=== PATIENT | female | born 1965 | race Asian ===

== ENCOUNTER 2023-06-10 22:43 | Emergency (ER) | payer SELFPAY ==
[~2023-06-10] VITALS: Ht 149.9 cm; Wt 52.3 kg
[2023-06-10 22:50] VITALS: BP 119/72; PULSE 89; RESP 14; TEMP 98.2; O2SAT 100
== END 2023-06-10 23:38 | disposition left against medical advice (07) ==
LOC: ER 22:45
DX: M79.673 Pain in unspecified foot (principal); Z53.21 Procedure and treatment not carried out due to patient leaving prior to being seen by health care provider
CPT/HCPCS: 99281

== ENCOUNTER 2023-06-26 00:32 | Emergency (ER) | payer MEDICAID ==
--- NOTE | 2023-06-26 01:13 | NUR ---
patient in restroom refusing to be seen by varnish finisherearly morning babysitter outside bathroom door speaking with patient at this time asking if they would like to be seen by a provider
== END 2023-06-26 01:37 | disposition left against medical advice (07) ==
LOC: ER 00:34
DX: R10.9 Unspecified abdominal pain (principal); M79.673 Pain in unspecified foot; Z53.21 Procedure and treatment not carried out due to patient leaving prior to being seen by health care provider

== ENCOUNTER 2023-08-30 20:27 | Emergency (ER) | payer MEDICAID ==
[~2023-08-30] VITALS: Ht 157.5 cm; Wt 59.1 kg
[~2023-08-30 20:27] MED LIST: BUPR-231 PO; HYDR50TA65 PO; KERASAL TOP; Miscellaneous TOP; OLAN20TA34 PO; TRAZ150T78 PO
[2023-08-31 09:37] VITALS: BP 146/73; PULSE 90; TEMP 97.7; O2SAT 98
[2023-08-31 16:10] VITALS: RESP 16
== END 2023-08-31 16:12 | disposition left against medical advice (07) ==
LOC: ER 20:28
DX: M79.671 Pain in right foot (principal); Z20.822 Contact with and (suspected) exposure to COVID-19; M79.672 Pain in left foot; R42 Dizziness and giddiness; F19.10 Other psychoactive substance abuse, uncomplicated; Z91.040 Latex allergy status
CPT/HCPCS: 36415; 87811; 99284

== ENCOUNTER 2023-09-01 09:11 | Emergency (ER) | payer MEDICAID ==
[~2023-09-01] VITALS: Ht 154.9 cm; Wt 47.4 kg
[2023-09-01 09:12] VITALS: BP 97/56; PULSE 93; RESP 16; TEMP 97.7; O2SAT 98
--- NOTE | 2023-09-01 10:00 | NUR ---
pt not in lobby registrations states she said she will come back later
== END 2023-09-01 12:24 | disposition left against medical advice (07) ==
LOC: ER 09:12
DX: Z04.6 Encounter for general psychiatric examination, requested by authority (principal); Z53.21 Procedure and treatment not carried out due to patient leaving prior to being seen by health care provider
CPT/HCPCS: 99281

== ENCOUNTER 2023-09-06 10:41 | Emergency (ER) | payer MEDICAID ==
[~2023-09-06] VITALS: Ht 157.5 cm; Wt 47.3 kg
[2023-09-06] MEDS ORDERED: NAPR-56 PO (12:08)
[2023-09-06 12:35] VITALS: BP 90/63; PULSE 94; RESP 16; TEMP 98.2; O2SAT 100
--- NOTE | 2023-09-06 14:43 | NUR ---
I AGREE WITH THE ASSESSMENT OF Adilson KOEHLER LVN.
== END 2023-09-06 12:36 | disposition home or self-care (01) ==
LOC: ER 10:41
DX: M79.671 Pain in right foot (principal); M79.672 Pain in left foot; F32.A Depression, unspecified; Z88.8 Allergy status to other drugs, medicaments and biological substances; Z59.00 Homelessness unspecified
CPT/HCPCS: 99284

== ENCOUNTER 2023-09-11 08:21 | Emergency (ER) | payer MEDICAID ==
[~2023-09-11] VITALS: Ht 157.5 cm; Wt 47.7 kg
[~2023-09-11 08:21] MED LIST changes: +NAPR-56 PO
[2023-09-11] MEDS ORDERED: NAPR-56 PO (09:38)
[2023-09-11 09:44] VITALS: BP 115/78; PULSE 90; RESP 18; TEMP 97.7; O2SAT 99
[2023-09-11] MEDS ORDERED: OLAN20TA34 PO (11:23)
== END 2023-09-11 09:46 | disposition home or self-care (01) ==
LOC: ER 08:21
DX: M54.59 Other low back pain (principal); F32.A Depression, unspecified; Z91.040 Latex allergy status; Z88.8 Allergy status to other drugs, medicaments and biological substances
CPT/HCPCS: 99282

== ENCOUNTER 2023-09-11 09:52 | Emergency (ER) | payer MEDICAID ==
[~2023-09-11] VITALS: Ht 157.5 cm; Wt 47.7 kg
[2023-09-11 10:01] VITALS: BP 118/80; PULSE 80; TEMP 98.6; O2SAT 100
[2023-09-11] MEDS ORDERED: OLAN20TA34 PO (11:23)
[2023-09-11 11:41] VITALS: RESP 16
== END 2023-09-11 12:00 | disposition home or self-care (01) ==
LOC: ER 09:52
DX: F41.9 Anxiety disorder, unspecified (principal); F29 Unspecified psychosis not due to a substance or known physiological condition; F32.A Depression, unspecified; Z91.040 Latex allergy status; Z88.8 Allergy status to other drugs, medicaments and biological substances
CPT/HCPCS: 99283

== ENCOUNTER 2023-09-18 09:57 | Emergency (ER) | payer MEDICAID ==
[~2023-09-18] VITALS: Ht 157.5 cm; Wt 47.5 kg
[2023-09-18 11:20] VITALS: BP 127/55; PULSE 77; RESP 14; TEMP 98.2; O2SAT 98
== END 2023-09-18 11:22 | disposition home or self-care (01) ==
LOC: ER 09:57
DX: M79.671 Pain in right foot (principal); M79.672 Pain in left foot; F32.A Depression, unspecified; Z91.040 Latex allergy status; Z88.8 Allergy status to other drugs, medicaments and biological substances
CPT/HCPCS: 99283

== ENCOUNTER 2023-09-24 23:42 | Emergency (ER) | payer MEDICAID ==
[~2023-09-24] VITALS: Ht 157.5 cm; Wt 47.7 kg
[2023-09-24 23:44] VITALS: BP 160/97; PULSE 88; RESP 16; TEMP 97.9; O2SAT 100
== END 2023-09-25 04:02 | disposition left against medical advice (07) ==
LOC: ER 23:43
DX: K08.89 Other specified disorders of teeth and supporting structures (principal); Z53.21 Procedure and treatment not carried out due to patient leaving prior to being seen by health care provider
CPT/HCPCS: 99281

== ENCOUNTER 2023-09-26 00:02 | Emergency (ER) | payer MEDICAID ==
[~2023-09-26] VITALS: Ht 157.5 cm; Wt 47.7 kg
[2023-09-26 00:08] VITALS: BP 130/86; PULSE 87; RESP 15; TEMP 98; O2SAT 100
[2023-09-26] MEDS ORDERED: acetaminophen 325mg tablet PO ONE (01:10)
== END 2023-09-26 01:19 | disposition home or self-care (01) ==
LOC: ER 00:03
DX: M79.671 Pain in right foot (principal); M79.672 Pain in left foot
CPT/HCPCS: 99283; L3265

== ENCOUNTER 2023-10-02 06:40 | Emergency (ER) | payer MEDICAID ==
[~2023-10-02] VITALS: Ht 157.5 cm; Wt 47.7 kg
[2023-10-02 06:41] VITALS: BP 172/76; PULSE 77; TEMP 98; O2SAT 100
[2023-10-02 08:06] VITALS: RESP 16
== END 2023-10-02 09:00 | disposition left against medical advice (07) ==
LOC: ER 06:41
DX: R10.9 Unspecified abdominal pain (principal); R53.83 Other fatigue; Z53.21 Procedure and treatment not carried out due to patient leaving prior to being seen by health care provider
CPT/HCPCS: 99281

== ENCOUNTER 2023-10-03 08:01 | Emergency (ER) | payer MEDICAID ==
[~2023-10-03] VITALS: Ht 157.5 cm; Wt 47.3 kg
[2023-10-03 08:03] VITALS: BP 115/64; PULSE 89; RESP 16; TEMP 98; O2SAT 100
== END 2023-10-03 09:13 | disposition left against medical advice (07) ==
LOC: ER 08:02
DX: M79.673 Pain in unspecified foot (principal); Z53.21 Procedure and treatment not carried out due to patient leaving prior to being seen by health care provider; Z88.8 Allergy status to other drugs, medicaments and biological substances; Z79.899 Other long term (current) drug therapy; Z59.00 Homelessness unspecified
CPT/HCPCS: 99281

== ENCOUNTER 2023-10-07 06:34 | Emergency (ER) | payer MEDICAID ==
[~2023-10-07] VITALS: Ht 157.5 cm; Wt 47.5 kg
[2023-10-07 06:38] VITALS: BP 134/91; PULSE 97; TEMP 97.1; O2SAT 98
[2023-10-07 06:53] VITALS: RESP 16
== END 2023-10-07 07:36 | disposition left against medical advice (07) ==
LOC: ER 06:35
DX: R11.2 Nausea with vomiting, unspecified (principal); R10.10 Upper abdominal pain, unspecified; Z53.29 Procedure and treatment not carried out because of patient's decision for other reasons; Z78.0 Asymptomatic menopausal state; Z88.8 Allergy status to other drugs, medicaments and biological substances; Z91.011 Allergy to milk products; Z79.899 Other long term (current) drug therapy; Z59.00 Homelessness unspecified
CPT/HCPCS: 99281; 99283

== ENCOUNTER 2023-10-08 03:56 | Emergency (ER) | payer MEDICAID ==
[~2023-10-08] VITALS: Ht 157.5 cm; Wt 46.1 kg
[2023-10-08 03:59] VITALS: BP 132/83; PULSE 66; RESP 16; TEMP 98.2; O2SAT 100
[2023-10-08] MEDS ORDERED: ibuprofen tablet 400 MG TABLET PO ONE (04:35)
[2023-10-08] MEDS ORDERED: ondansetron 4mg rapidly disintigrating tab PO ONE (04:35)
== END 2023-10-08 06:04 | disposition home or self-care (01) ==
LOC: ER 03:57
DX: R11.2 Nausea with vomiting, unspecified (principal); R10.9 Unspecified abdominal pain; Z59.00 Homelessness unspecified; Z91.011 Allergy to milk products; Z88.8 Allergy status to other drugs, medicaments and biological substances; Z79.899 Other long term (current) drug therapy
CPT/HCPCS: 99283

== ENCOUNTER 2023-10-10 16:25 | Emergency (ER) | payer MEDICAID ==
[~2023-10-10] VITALS: Ht 157.5 cm; Wt 45.5 kg
[2023-10-10 16:35] VITALS: BP 157/87; PULSE 100; RESP 16; TEMP 98.6; O2SAT 98
[2023-10-10] MEDS ORDERED: NAPR-56 PO (17:14)
[2023-10-10] MEDS ORDERED: TRAZ150T78 PO (17:14)
[2023-10-10] MEDS ORDERED: BUPR-231 PO (17:14)
[2023-10-10] MEDS ORDERED: OLAN20TA34 PO (17:14)
[2023-10-10] MEDS ORDERED: HYDR50TA65 PO (17:14)
== END 2023-10-10 17:20 | disposition home or self-care (01) ==
LOC: ER 16:26
DX: F41.9 Anxiety disorder, unspecified (principal); F29 Unspecified psychosis not due to a substance or known physiological condition; F32.A Depression, unspecified; Z59.00 Homelessness unspecified; Z79.899 Other long term (current) drug therapy; Z91.011 Allergy to milk products
CPT/HCPCS: 99283

== ENCOUNTER 2023-10-13 04:12 | Emergency (ER) | payer MEDICAID ==
[~2023-10-13] VITALS: Ht 157.5 cm; Wt 54.5 kg
[2023-10-13 04:40] VITALS: BP 175/98; PULSE 106; RESP 17; TEMP 98; O2SAT 99
== END 2023-10-13 08:48 | disposition left against medical advice (07) ==
LOC: ER 04:12
DX: R11.10 Vomiting, unspecified (principal); Z53.21 Procedure and treatment not carried out due to patient leaving prior to being seen by health care provider
CPT/HCPCS: 99281

== ENCOUNTER 2023-10-19 04:03 | Emergency (ER) | payer MEDICAID | END 2023-10-19 05:26 | disposition left against medical advice (07) | LOC: ER 04:04 | DX: M79.673 Pain in unspecified foot (principal); Z53.21 Procedure and treatment not carried out due to patient leaving prior to being seen by health care provider ==

== ENCOUNTER 2023-10-20 16:50 | Emergency (ER) | payer MEDICAID ==
[~2023-10-20] VITALS: Ht 157.5 cm; Wt 47.3 kg
[2023-10-20 17:58] VITALS: TEMP 97.8
[2023-10-20 22:28] VITALS: BP 126/83; PULSE 88; RESP 14; O2SAT 98
== END 2023-10-21 03:13 | disposition left against medical advice (07) ==
LOC: ER 16:51
DX: R44.3 Hallucinations, unspecified (principal); Z53.21 Procedure and treatment not carried out due to patient leaving prior to being seen by health care provider
CPT/HCPCS: 99281

== ENCOUNTER 2023-10-27 13:30 | Emergency (ER) | payer MEDICAID ==
[~2023-10-27] VITALS: Ht 157.5 cm; Wt 47.3 kg
[2023-10-27 14:35] VITALS: TEMP 99.4
[2023-10-27 15:58] VITALS: BP 125/71; PULSE 92; RESP 16; O2SAT 99
== END 2023-10-27 15:59 | disposition home or self-care (01) ==
LOC: ER 13:30
DX: S91.119A Laceration without foreign body of unspecified toe without damage to nail, initial encounter (principal); F32.A Depression, unspecified; Z59.00 Homelessness unspecified; T69.9XXA Effect of reduced temperature, unspecified, initial encounter; Y93.89 Activity, other specified; Y92.89 Other specified places as the place of occurrence of the external cause; Y99.8 Other external cause status
CPT/HCPCS: 99281; 99282

== ENCOUNTER 2023-10-29 15:58 | Emergency (ER) | payer MEDICAID ==
[~2023-10-29] VITALS: Ht 157.5 cm; Wt 49.0 kg
[2023-10-29 18:33] VITALS: BP 138/86; PULSE 90; RESP 18; TEMP 98.5; O2SAT 97
== END 2023-10-29 18:38 | disposition home or self-care (01) ==
LOC: ER 15:58
DX: B34.9 Viral infection, unspecified (principal); Z91.011 Allergy to milk products; Z79.899 Other long term (current) drug therapy
CPT/HCPCS: 87502; 87503; 99283

== ENCOUNTER 2023-11-04 12:47 | Emergency (ER) | payer MEDICAID | END 2023-11-04 13:48 | disposition left against medical advice (07) | LOC: ER 12:47 | DX: R11.10 Vomiting, unspecified (principal); Z53.21 Procedure and treatment not carried out due to patient leaving prior to being seen by health care provider ==

== ENCOUNTER 2023-11-07 11:59 | Emergency (ER) | payer MEDICAID ==
[~2023-11-07] VITALS: Ht 157.5 cm; Wt 47.7 kg
[2023-11-07 12:01] VITALS: BP 134/83; PULSE 67; RESP 16; TEMP 97.7; O2SAT 98
[2023-11-07] MEDS ORDERED: ERYT1OIN6 LEFTEYE (12:06)
== END 2023-11-07 12:15 | disposition home or self-care (01) ==
LOC: ER 12:00
DX: H10.9 Unspecified conjunctivitis (principal); Z59.00 Homelessness unspecified; Z79.2 Long term (current) use of antibiotics; Z79.899 Other long term (current) drug therapy; Z91.011 Allergy to milk products
CPT/HCPCS: 99283

== ENCOUNTER 2023-12-20 22:13 | Emergency (ER) | payer MEDICAID ==
[~2023-12-20] VITALS: Ht 152.4 cm; Wt 48.9 kg
[2023-12-20 22:15] VITALS: TEMP 97.9
[2023-12-20] MEDS ORDERED: mag hydrox/Alum hydrox/simeth 30ml oral suspension PO ONE (23:00)
[2023-12-20] MEDS ORDERED: LIDOcaine Viscous 15ml cup MM ONE (23:00)
[2023-12-20] MEDS ORDERED: FAMO-129 PO (23:26)
[2023-12-20 23:42] VITALS: BP 110/85; PULSE 73; RESP 20; O2SAT 99
[2023-12-21] MEDS ORDERED: DOCU-148 PO (13:35)
[2023-12-21] MEDS ORDERED: ONDA4TAB12 PO (13:35)
[2023-12-21] MEDS ORDERED: DICY20TA17 PO (13:35)
== END 2023-12-20 23:44 | disposition home or self-care (01) ==
LOC: ER 22:14
DX: K29.00 Acute gastritis without bleeding (principal); Z88.8 Allergy status to other drugs, medicaments and biological substances; Z79.899 Other long term (current) drug therapy
CPT/HCPCS: 93005; 99283

== ENCOUNTER 2023-12-21 08:34 | Emergency (ER) | payer MEDICAID ==
[~2023-12-21] VITALS: Ht 154.9 cm; Wt 49.7 kg
[~2023-12-21 08:34] MED LIST changes: +FAMO-129 PO
[2023-12-21 09:09] VITALS: TEMP 97.8
[2023-12-21] MEDS: ondansetron 4mg rapidly disintigrating tab PO ONE (10:04)
[2023-12-21] MEDS: ketorolac trometh inj. 60 MG/2 ML VIAL IM ONE (10:04)
[2023-12-21] MEDS: dicyclomine 10 MG capsule PO ONE (10:04)
[2023-12-21] MEDS: naloxone 0.4 mg/ml inj IV ONE (10:45)
[2023-12-21 10:53] LABS: BASOPHILS # (AUTO) 0.1 X10'3 (0-0.2); BASOPHILS % (AUTO) 1.4 % (0-1); EOSINOPHILS # (AUTO) 0.5 X10'3 (0-0.9); HEMATOCRIT 39.7 % (35.0-45.0); HEMOGLOBIN 12.9 g/dl (12.0-16.0); LYMPHOCYTES % (AUTO) 21.9 % (21-51); MEAN CORPUSCULAR HEMOGLOBIN 28.4 PG (27.0-31.0); MEAN CORPUSCULAR HGB CONC 32.5 g/dL (33.0-36.5); MEAN CORPUSCULAR VOLUME 87.3 FL (78-98); MEAN PLATELET VOLUME 7.4 FL (7.4-10.4); MONOCYTES # (AUTO) 0.6 X10'3 (0-0.9); MONOCYTES % (AUTO) 12.7 % (2-12); NEUTROPHILS # (AUTO) 2.3 X10'3 (1.8-7.7); PLATELET COUNT 291 X10'3 (140-440); RED BLOOD COUNT 4.55 X10'6 (4.20-5.60); RED CELL DISTRIBUTION WIDTH 15.4 % (11.5-14.5); WHITE BLOOD COUNT 4.4 X10'3 (4.5-11.0)
[2023-12-21 11:14] LABS: ALANINE AMINOTRANSFERASE 40 U/L (12-78); ALBUMIN 3.7 G/DL (3.4-5.0); ALKALINE PHOSPHATASE 69 IU/L (46-116); ANION GAP 13 (8-16); ASPARTATE AMINO TRANSFERASE 53 U/L (10-37); BILIRUBIN,TOTAL 0.3 MG/DL (0.1-1.0); BLOOD UREA NITROGEN 29 MG/DL (7-18); BUN/CREATININE RATIO 26.4 (10.0-20.0); CALCIUM 9.1 MG/DL (8.5-10.1); CHLORIDE 108 MMOL/L (99-107); GLUCOSE 81 MG/DL (70-104); LIPASE 41 U/L (16-77); POTASSIUM 3.4 MMOL/L (3.5-5.1); SODIUM 145 MMOL/L (135-145); TOTAL CARBON DIOXIDE 23.6 MMOL/L (24-32); TOTAL PROTEIN 7.5 G/DL (6.4-8.2); eCRCL 43 ML/MIN; eGFR 51 ML/MIN
[2023-12-21 11:16] LABS: BILIRUBIN,URINE NEGATIVE (Neg); CLARITY,URINE CLEAR (Clear); COLOR,URINE YELLOW (Yellow); GLUCOSE, URINE NEGATIVE (Neg); KETONES,URINE NEGATIVE (Neg); LEUKOCYTE ESTERASE ,URINE NEGATIVE (Neg); NITRITES, URINE NEGATIVE (Neg); OCCULT BLOOD,URINE SMALL (Neg); PROTEIN,URINE NEGATIVE (Neg); UROBILINOGEN,URINE 0.2 E.U/dL (0.2-1.0)
[2023-12-21 11:35] LABS: UA COLLECTION TYPE CLN CATCH MIDSTREAM
[2023-12-21 11:36] LABS: BACTERIA,URINE FEW /HPF (Neg); MUCUS STRANDS FEW /LPF (Neg); SQUAMOUS EPITHELIAL CELL,UR FEW /LPF (FEW)
[2023-12-21 13:27] VITALS: BP 130/64; PULSE 62; RESP 17; O2SAT 100
[2023-12-21] MEDS ORDERED: DICY20TA17 PO (13:35)
[2023-12-21] MEDS ORDERED: DOCU-148 PO (13:35)
[2023-12-21] MEDS ORDERED: ONDA4TAB12 PO (13:35)
== END 2023-12-21 14:12 | disposition home or self-care (01) ==
LOC: ER 08:35
DX: K59.00 Constipation, unspecified (principal); F15.10 Other stimulant abuse, uncomplicated; Z88.8 Allergy status to other drugs, medicaments and biological substances; Z79.899 Other long term (current) drug therapy
CPT/HCPCS: 36415; 74018; 76856; 80053; 81001; 83690; 85025; 87088; 87502; 87503; 93976; 99284

== ENCOUNTER 2023-12-24 03:31 | Emergency (ER) | payer MEDICAID ==
[~2023-12-24] VITALS: Ht 152.4 cm; Wt 525.0 kg
[~2023-12-24 03:31] MED LIST changes: +DICY20TA17 PO; +DOCU-148 PO; +ONDA4TAB12 PO
[2023-12-24] MEDS: acetaminophen 325mg tablet PO SCH (07:15)
[2023-12-24] MEDS: ibuprofen 200mg tablet PO SCH (07:15)
[2023-12-24 07:20] VITALS: BP 126/84; PULSE 62; RESP 16; TEMP 97.8; O2SAT 97
== END 2023-12-24 07:23 | disposition home or self-care (01) ==
LOC: ER 03:32
DX: M79.671 Pain in right foot (principal); M79.672 Pain in left foot; R07.89 Other chest pain; R11.2 Nausea with vomiting, unspecified; F90.9 Attention-deficit hyperactivity disorder, unspecified type; Z88.8 Allergy status to other drugs, medicaments and biological substances; Z79.899 Other long term (current) drug therapy; Z79.2 Long term (current) use of antibiotics
CPT/HCPCS: 99283

== ENCOUNTER 2023-12-27 01:26 | Emergency (ER) | payer MEDICAID ==
[~2023-12-27] VITALS: Ht 154.9 cm; Wt 47.7 kg
[2023-12-27 01:47] VITALS: BP 153/86; PULSE 83; RESP 16; TEMP 97.6; O2SAT 100
== END 2023-12-27 03:19 | disposition left against medical advice (07) ==
LOC: ER 01:27
DX: R42 Dizziness and giddiness (principal); Z53.21 Procedure and treatment not carried out due to patient leaving prior to being seen by health care provider
CPT/HCPCS: 99281

== ENCOUNTER 2023-12-30 20:48 | Emergency (ER) | payer MEDICAID ==
[~2023-12-30] VITALS: Ht 154.9 cm; Wt 50.0 kg
[2023-12-30 21:18] VITALS: BP 139/76; PULSE 62; RESP 16; TEMP 97.8; O2SAT 98
== END 2023-12-30 23:29 | disposition home or self-care (01) ==
LOC: ER 20:50
DX: M79.673 Pain in unspecified foot (principal); Z59.00 Homelessness unspecified; Z88.8 Allergy status to other drugs, medicaments and biological substances; F31.9 Bipolar disorder, unspecified
CPT/HCPCS: 99281

== ENCOUNTER 2024-01-06 | Emergency (ER) | payer MEDICAID ==
[~2024-01-06] VITALS: Ht 152.4 cm; Wt 52.0 kg
[2024-01-06 00:11] VITALS: TEMP 98.2
[2024-01-06] MEDS: acetaminophen 325mg tablet PO ONE (02:07)
[2024-01-06 02:11] VITALS: BP 130/78; PULSE 78; RESP 16; O2SAT 98
== END 2024-01-06 02:12 | disposition home or self-care (01) ==
LOC: ER 00:01
DX: M79.672 Pain in left foot (principal); M79.671 Pain in right foot; F32.9 Major depressive disorder, single episode, unspecified; Z88.8 Allergy status to other drugs, medicaments and biological substances
CPT/HCPCS: 99282

== ENCOUNTER 2024-01-08 19:11 | Emergency (ER) | payer MEDICAID ==
[~2024-01-08] VITALS: Ht 154.9 cm; Wt 48.2 kg
[2024-01-08 19:20] VITALS: BP 129/67; PULSE 107; RESP 16; TEMP 98.4; O2SAT 100
== END 2024-01-08 23:07 | disposition left against medical advice (07) ==
LOC: ER 19:11
DX: M79.671 Pain in right foot (principal); M79.672 Pain in left foot; Z53.21 Procedure and treatment not carried out due to patient leaving prior to being seen by health care provider
CPT/HCPCS: 99281

== ENCOUNTER 2024-01-09 14:56 | Emergency (ER) | payer MEDICAID ==
[~2024-01-09] VITALS: Ht 154.9 cm; Wt 46.9 kg
[2024-01-09 15:22] VITALS: BP 165/79; PULSE 94; RESP 16; O2SAT 97
[2024-01-09 16:07] VITALS: TEMP 98.6
== END 2024-01-09 16:08 | disposition home or self-care (01) ==
LOC: ER 14:57
DX: M79.673 Pain in unspecified foot (principal); M79.89 Other specified soft tissue disorders; Z88.8 Allergy status to other drugs, medicaments and biological substances; Z79.899 Other long term (current) drug therapy
CPT/HCPCS: 99281

== ENCOUNTER → 2024-01-11 | Emergency (ER) | payer MEDICAID | END | disposition left against medical advice (07) | LOC: ER 21:36 | DX: M79.673 Pain in unspecified foot (principal); Z53.21 Procedure and treatment not carried out due to patient leaving prior to being seen by health care provider ==

== ENCOUNTER 2024-01-13 01:38 | Emergency (ER) | payer MEDICAID ==
[~2024-01-13] VITALS: Ht 152.4 cm; Wt 47.7 kg
[2024-01-13 01:45] VITALS: BP 118/65; PULSE 83; RESP 16; TEMP 98.5; O2SAT 98
[2024-01-13] MEDS: acetaminophen 325mg tablet PO ONE (02:07)
[2024-01-13] MEDS: famotidine 20mg tablet PO ONE (02:07)
[2024-01-13] MEDS: ondansetron 4mg rapidly disintigrating tab PO ONE (02:07)
== END 2024-01-13 03:43 | disposition home or self-care (01) ==
LOC: ER 01:39
DX: K29.70 Gastritis, unspecified, without bleeding (principal); M79.673 Pain in unspecified foot; F31.9 Bipolar disorder, unspecified; Z88.8 Allergy status to other drugs, medicaments and biological substances; Z79.899 Other long term (current) drug therapy
CPT/HCPCS: 99284

== ENCOUNTER 2024-01-16 00:02 | Emergency (ER) | payer MEDICAID | END 2024-01-16 01:02 | disposition left against medical advice (07) | LOC: ER 00:03 | DX: R10.9 Unspecified abdominal pain (principal); Z53.21 Procedure and treatment not carried out due to patient leaving prior to being seen by health care provider ==

== ENCOUNTER 2024-01-16 06:39 | Emergency (ER) | payer MEDICAID ==
[~2024-01-16] VITALS: Ht 152.4 cm; Wt 47.7 kg
[2024-01-16] MEDS: ibuprofen tablet 400 MG TABLET PO ONE (07:17)
[2024-01-16 07:18] VITALS: BP 133/85; PULSE 76; RESP 16; TEMP 97.7; O2SAT 99
== END 2024-01-16 07:20 | disposition home or self-care (01) ==
LOC: ER 06:39
DX: S90.32XA Contusion of left foot, initial encounter (principal); S90.31XA Contusion of right foot, initial encounter; F32.A Depression, unspecified; Z59.00 Homelessness unspecified; Z91.011 Allergy to milk products; Z79.899 Other long term (current) drug therapy; Z79.1 Long term (current) use of non-steroidal anti-inflammatories (NSAID); X58.XXXA Exposure to other specified factors, initial encounter; Y93.89 Activity, other specified; Y92.89 Other specified places as the place of occurrence of the external cause; Y99.8 Other external cause status
CPT/HCPCS: 99282

== ENCOUNTER 2024-01-19 02:34 | Emergency (ER) | payer MEDICAID ==
[~2024-01-19] VITALS: Ht 157.5 cm; Wt 54.5 kg
[2024-01-19] MEDS ORDERED: TETRAcaine 0.5% ophthalmic drops 15ml EACHEYE ONE (04:50)
[2024-01-19] MEDS ORDERED: POLOS LEFTEYE (05:17)
[2024-01-19] MEDS: TETRACAINE 0.5% 4 ML OPHTHALMIC DROPS EACHEYE ONE (05:45)
[2024-01-19 05:46] VITALS: PULSE 66
[2024-01-19 05:49] VITALS: BP 115/70; RESP 14; TEMP 97.6; O2SAT 99
== END 2024-01-19 05:53 | disposition home or self-care (01) ==
LOC: ER 02:35
DX: S05.02XA Injury of conjunctiva and corneal abrasion without foreign body, left eye, initial encounter (principal); Z59.00 Homelessness unspecified; Z91.011 Allergy to milk products; Z79.899 Other long term (current) drug therapy; X58.XXXA Exposure to other specified factors, initial encounter; Y93.89 Activity, other specified; Y92.89 Other specified places as the place of occurrence of the external cause; Y99.8 Other external cause status
CPT/HCPCS: 99283

== ENCOUNTER 2024-01-20 02:53 | Emergency (ER) | payer MEDICAID ==
[~2024-01-20] VITALS: Ht 165.1 cm; Wt 47.7 kg
[~2024-01-20 02:53] MED LIST changes: +POLOS LEFTEYE
[2024-01-20 03:33] VITALS: BP 150/80; PULSE 89; RESP 16; TEMP 97.8; O2SAT 98
== END 2024-01-20 05:12 | disposition left against medical advice (07) ==
LOC: ER 02:54
DX: R42 Dizziness and giddiness (principal); Z53.21 Procedure and treatment not carried out due to patient leaving prior to being seen by health care provider
CPT/HCPCS: 99281

== ENCOUNTER 2024-01-21 05:49 | Emergency (ER) | payer MEDICAID ==
[~2024-01-21] VITALS: Ht 165.1 cm; Wt 47.7 kg
[2024-01-21 07:47] VITALS: BP 172/96; PULSE 82; RESP 16; TEMP 97.9; O2SAT 99
== END 2024-01-21 07:48 | disposition home or self-care (01) ==
LOC: ER 05:50
DX: T73.0XXA Starvation, initial encounter (principal); F99 Mental disorder, not otherwise specified; F31.9 Bipolar disorder, unspecified; Z59.00 Homelessness unspecified; Z91.011 Allergy to milk products; Z79.899 Other long term (current) drug therapy; X58.XXXA Exposure to other specified factors, initial encounter
CPT/HCPCS: 99281; 99283

== ENCOUNTER 2024-01-22 23:54 | Emergency (ER) | payer MEDICAID ==
[~2024-01-22] VITALS: Ht 154.9 cm; Wt 47.7 kg
[2024-01-22 23:56] VITALS: BP 144/86; PULSE 95; RESP 18; TEMP 98.5; O2SAT 99
== END 2024-01-23 01:33 | disposition left against medical advice (07) ==
LOC: ER 23:54
DX: M79.673 Pain in unspecified foot (principal); Z53.21 Procedure and treatment not carried out due to patient leaving prior to being seen by health care provider
CPT/HCPCS: 99281

== ENCOUNTER 2024-01-24 11:52 | Emergency (ER) | payer MEDICAID | END 2024-01-24 13:04 | disposition left against medical advice (07) | LOC: ER 11:53 | DX: M79.673 Pain in unspecified foot (principal); Z53.21 Procedure and treatment not carried out due to patient leaving prior to being seen by health care provider ==

== ENCOUNTER 2024-01-26 05:39 | Emergency (ER) | payer MEDICAID ==
[~2024-01-26] VITALS: Ht 154.9 cm; Wt 47.7 kg
[2024-01-26 05:49] VITALS: BP 140/72; PULSE 68; RESP 16; TEMP 97.7; O2SAT 100
== END 2024-01-26 07:41 | disposition left against medical advice (07) ==
LOC: ER 05:40
DX: M79.671 Pain in right foot (principal); M79.672 Pain in left foot; Z53.21 Procedure and treatment not carried out due to patient leaving prior to being seen by health care provider
CPT/HCPCS: 99281

== ENCOUNTER 2024-01-28 17:23 | Emergency (ER) | payer MEDICAID ==
[~2024-01-28 17:23] MED LIST changes: -POLOS LEFTEYE
== END 2024-01-28 18:25 | disposition left against medical advice (07) ==
LOC: ER 17:24
DX: M79.673 Pain in unspecified foot (principal); Z53.21 Procedure and treatment not carried out due to patient leaving prior to being seen by health care provider

== ENCOUNTER → 2024-01-29 | Emergency (ER) | payer MEDICAID | END | disposition left against medical advice (07) | LOC: ER 07:25 | DX: M79.673 Pain in unspecified foot (principal); Z53.21 Procedure and treatment not carried out due to patient leaving prior to being seen by health care provider ==

== ENCOUNTER 2024-02-07 01:28 | Emergency (ER) | payer MEDICAID ==
[~2024-02-07] VITALS: Ht 152.4 cm; Wt 45.2 kg
[2024-02-07 02:00] VITALS: BP 146/96; PULSE 99; RESP 16; TEMP 98; O2SAT 98
[2024-02-07] MEDS: normal saline 1000ml 1,000 ML IV ONE (07:03)
[2024-02-07] MEDS: normal saline 1000ML IV soln IVB ONE (07:03)
[2024-02-07] MEDS: ondansetron/PF 4mg/2ml inj IV ONE (07:04)
[2024-02-07] MEDS: ondansetron 4mg rapidly disintigrating tab PO ONE (07:06)
[2024-02-07] MEDS ORDERED: ONDA4TAB12 PO (07:18)
[2024-02-07] MEDS ORDERED: POLOS EACHEYE (17:53)
== END 2024-02-07 07:34 | disposition home or self-care (01) ==
LOC: ER 01:29
DX: R11.2 Nausea with vomiting, unspecified (principal); R10.84 Generalized abdominal pain; F32.A Depression, unspecified; Z87.891 Personal history of nicotine dependence; Z59.00 Homelessness unspecified; Z88.8 Allergy status to other drugs, medicaments and biological substances; Z79.899 Other long term (current) drug therapy; Z79.2 Long term (current) use of antibiotics
CPT/HCPCS: 99283

== ENCOUNTER 2024-02-07 17:19 | Emergency (ER) | payer MEDICAID ==
[~2024-02-07] VITALS: Ht 157.5 cm; Wt 98.8 kg
[2024-02-07 17:30] VITALS: BP 170/90; PULSE 98; RESP 20; TEMP 97.7; O2SAT 99
[2024-02-07] MEDS: ondansetron 4mg rapidly disintigrating tab PO ONE (17:52)
[2024-02-07] MEDS ORDERED: POLOS EACHEYE (17:53)
== END 2024-02-07 18:02 | disposition home or self-care (01) ==
LOC: ER 17:19
DX: H10.9 Unspecified conjunctivitis (principal); R11.0 Nausea; F32.A Depression, unspecified; Z59.00 Homelessness unspecified; Z88.8 Allergy status to other drugs, medicaments and biological substances; Z79.899 Other long term (current) drug therapy; Z79.2 Long term (current) use of antibiotics
CPT/HCPCS: 99283

== ENCOUNTER → 2024-02-08 | Emergency (ER) | payer MEDICAID ==
[~2024-02-08] VITALS: Ht 157.5 cm; Wt 45.0 kg
[~2024-02-08] MED LIST changes: +POLOS EACHEYE
[2024-02-08 11:11] VITALS: BP 133/75; PULSE 69; RESP 16; TEMP 97.8; O2SAT 97
== END | disposition left against medical advice (07) ==
LOC: ER 10:52
DX: R10.9 Unspecified abdominal pain (principal); M79.673 Pain in unspecified foot; H57.10 Ocular pain, unspecified eye; Z53.21 Procedure and treatment not carried out due to patient leaving prior to being seen by health care provider
CPT/HCPCS: 99281

== ENCOUNTER 2024-02-12 05:32 | Emergency (ER) | payer MEDICAID ==
[~2024-02-12] VITALS: Ht 154.9 cm; Wt 45.1 kg
[2024-02-12 05:54] VITALS: BP 170/77; PULSE 60; RESP 16; TEMP 98; O2SAT 99
== END 2024-02-12 06:01 | disposition left against medical advice (07) ==
LOC: ER 05:33
DX: R42 Dizziness and giddiness (principal); Z53.21 Procedure and treatment not carried out due to patient leaving prior to being seen by health care provider; H57.89 Other specified disorders of eye and adnexa

== ENCOUNTER 2024-02-22 23:05 | Emergency (ER) | payer MEDICAID ==
[~2024-02-22] VITALS: Ht 160 cm; Wt 52.3 kg
[2024-02-22 23:10] VITALS: BP 94/59; PULSE 92; RESP 16; O2SAT 96
[2024-02-23] MEDS ORDERED: normal saline 1000ml 1,000 ML IV ONE (02:25)
[2024-02-23] MEDS ORDERED: ondansetron/PF 4mg/2ml inj IV ONE (02:25)
[2024-02-23 04:21] VITALS: TEMP 98
== END 2024-02-23 04:25 | disposition home or self-care (01) ==
LOC: ER 23:06
DX: R19.7 Diarrhea, unspecified (principal); R11.2 Nausea with vomiting, unspecified; F32.A Depression, unspecified; Z59.00 Homelessness unspecified; Z88.8 Allergy status to other drugs, medicaments and biological substances; Z79.899 Other long term (current) drug therapy; Z79.2 Long term (current) use of antibiotics
CPT/HCPCS: 99281; J7030

== ENCOUNTER 2024-03-06 18:32 | Emergency (ER) | payer MEDICAID ==
[~2024-03-06] VITALS: Ht 152.4 cm; Wt 45.5 kg
[2024-03-06 18:46] VITALS: BP 136/84; PULSE 91; TEMP 97.9; O2SAT 98
[2024-03-06] MEDS: ketorolac trometh. 30mg/ml inj. IM ONE (19:43)
[2024-03-06 20:45] VITALS: RESP 18
[2024-03-06] MEDS: HYDROcodone/acetaminophen 10/325mg tab PO ONE (20:45)
== END 2024-03-06 21:03 | disposition home or self-care (01) ==
LOC: ER 18:33
DX: M25.511 Pain in right shoulder (principal); F99 Mental disorder, not otherwise specified; F15.10 Other stimulant abuse, uncomplicated; F32.3 Major depressive disorder, single episode, severe with psychotic features; Z88.8 Allergy status to other drugs, medicaments and biological substances; Z79.899 Other long term (current) drug therapy; Z79.2 Long term (current) use of antibiotics; Z98.890 Other specified postprocedural states
CPT/HCPCS: 71100; 73000; 73020; 99284

== ENCOUNTER 2024-03-09 08:23 | Emergency (ER) | payer MEDICAID ==
[~2024-03-09] VITALS: Ht 160 cm; Wt 45.5 kg
[2024-03-09 08:33] VITALS: BP 131/68; PULSE 79; O2SAT 98
[2024-03-09] MEDS ORDERED: NAPR-56 PO (08:55)
[2024-03-09 09:01] VITALS: RESP 16
[2024-03-09] MEDS: HYDROcodone/acetaminophen 5mg/325mg tablet PO ONE (09:01)
[2024-03-09] MEDS: naproxen 500mg tablet PO ONE (09:01)
[2024-03-09 09:07] VITALS: TEMP 97.8
== END 2024-03-09 09:10 | disposition home or self-care (01) ==
LOC: ER 08:24
DX: M25.511 Pain in right shoulder (principal); F32.A Depression, unspecified; Z60.2 Problems related to living alone; Z59.00 Homelessness unspecified; Z91.018 Allergy to other foods; V49.9XXA Car occupant (driver) (passenger) injured in unspecified traffic accident, initial encounter; Y93.89 Activity, other specified; Y92.89 Other specified places as the place of occurrence of the external cause; Y99.8 Other external cause status
CPT/HCPCS: 71045; 99283

== ENCOUNTER 2024-03-09 19:24 | Emergency (ER) | payer MEDICAID ==
[~2024-03-09] VITALS: Ht 154.9 cm; Wt 55.0 kg
[2024-03-09 20:07] VITALS: BP 134/78; PULSE 84; RESP 20; TEMP 98.6; O2SAT 100
[2024-03-09] MEDS: naproxen 500mg tablet PO ONE (22:24)
== END 2024-03-09 22:29 | disposition home or self-care (01) ==
LOC: ER 19:25
DX: M25.519 Pain in unspecified shoulder (principal); F41.9 Anxiety disorder, unspecified; Z76.0 Encounter for issue of repeat prescription; Z88.8 Allergy status to other drugs, medicaments and biological substances; Z79.899 Other long term (current) drug therapy; Z59.00 Homelessness unspecified
CPT/HCPCS: 99283

== ENCOUNTER 2024-03-10 19:52 | Emergency (ER) | payer MEDICAID ==
[~2024-03-10] VITALS: Ht 152.4 cm; Wt 45.5 kg
[~2024-03-10 19:52] MED LIST changes: -POLOS EACHEYE
[2024-03-10 20:02] VITALS: BP 154/82; PULSE 80; RESP 16; TEMP 97.9; O2SAT 97
[2024-03-11] MEDS ORDERED: NAPR-56 PO (04:31)
[2024-03-11] MEDS: acetaminophen 325mg tablet PO ONE (04:44)
[2024-03-11] MEDS: ibuprofen tablet 400 MG TABLET PO ONE (04:44)
== END 2024-03-11 05:13 | disposition home or self-care (01) ==
LOC: ER 19:53
DX: M25.511 Pain in right shoulder (principal); Z91.018 Allergy to other foods; F32.A Depression, unspecified; Z60.2 Problems related to living alone; Z59.00 Homelessness unspecified; V99.XXXA Unspecified transport accident, initial encounter; Y93.89 Activity, other specified; Y92.89 Other specified places as the place of occurrence of the external cause; Y99.8 Other external cause status
CPT/HCPCS: 99283

== ENCOUNTER 2024-03-11 22:31 | Emergency (ER) | payer MEDICAID ==
[~2024-03-11] VITALS: Ht 152.4 cm; Wt 45.0 kg
[2024-03-11 22:52] VITALS: BP 143/84; PULSE 92; RESP 16; TEMP 98.9; O2SAT 98
== END 2024-03-12 03:49 | disposition left against medical advice (07) ==
LOC: ER 22:32
DX: R52 Pain, unspecified (principal); Z53.21 Procedure and treatment not carried out due to patient leaving prior to being seen by health care provider

== ENCOUNTER 2024-03-18 03:21 | Emergency (ER) | payer MEDICAID ==
[~2024-03-18] VITALS: Ht 154.9 cm; Wt 45.5 kg
[2024-03-18] MEDS: naproxen 500mg tablet PO ONE (06:40)
[2024-03-18 06:50] VITALS: BP 165/104; PULSE 94; RESP 16; TEMP 98.6; O2SAT 98
== END 2024-03-18 06:53 | disposition home or self-care (01) ==
LOC: ER 06:52
DX: M79.18 Myalgia, other site (principal); Z88.8 Allergy status to other drugs, medicaments and biological substances; Z79.899 Other long term (current) drug therapy
CPT/HCPCS: 99282

== ENCOUNTER 2024-09-02 13:13 | Outpatient (CLI) | payer OTHER ==
[~2024-09-02 13:13] MED LIST changes: -OLAN20TA34 PO; +OLAN20TA81 PO; +ONDA-243 PO; -ONDA4TAB12 PO
== END 2024-09-02 23:59 | disposition home or self-care (01) ==
LOC: RAD 13:13
PROVIDERS: ATTEND Orthopaedic Surgery
DX: S42.001A Fracture of unspecified part of right clavicle, initial encounter for closed fracture (principal); M19.011 Primary osteoarthritis, right shoulder; M75.21 Bicipital tendinitis, right shoulder; M47.812 Spondylosis without myelopathy or radiculopathy, cervical region; X58.XXXA Exposure to other specified factors, initial encounter; Y93.89 Activity, other specified; Y92.89 Other specified places as the place of occurrence of the external cause; Y99.8 Other external cause status
CPT/HCPCS: 73200; 73221